=== PATIENT | male | born 1990 | race Caucasian/White ===

== ENCOUNTER 2019-01-03 12:53 | Inpatient (IN) | payer OTHER ==
[2019-01-03] MEDS ORDERED: Sodium Chloride 0.9% 10 ML SDV IV PRN (13:23)
[2019-01-03] MEDS ORDERED: Sodium Chloride 0.9% 2.5 ML Syringe FLUSH PRN (13:23)
[2019-01-03] MEDS ORDERED: Sodium Chloride 0.9% 10 ML Syringe FLUSH PRN (13:23)
[2019-01-03] MEDS ORDERED: HYDROmorphone 1 MG/ML Syringe IVPUSH PRN (13:24)
[2019-01-03] MEDS ORDERED: Piperacillin/Tazobactam 3.375 GM in Sodium Chloride 0.9% 50 ML IV ONE (13:24)
--- NOTE | 2019-01-03 13:30 | PCM.HP.2 ---
H&P History of Present Illness - General Date of Service: 01/03/19 Admit Problem/Dx: Admission Diagnosis/Problem Admission Diagnosis/Problem Appendicitis Source of Information: Patient History Limitations: Reports: No Limitations - History of Present Illness Initial Comments - Free Text/Narative: Patient is a 28 year old male with a 2 day history of abdominal pain. He complains of pain with movement. He has had chills, nausea and vomiting associated with this. He was seen at an OSH. His WBC was 19K. CT abdomen/pelvis shows a dilated and inflamed appendix consistent with appendicitis. He was transfered here for surgical management. - Related Data Allergies/Adverse Reactions: Allergies Allergy/AdvReac Type Severity Reaction Status Date / Time No Known Allergies Allergy Verified 10/29/15 13:09 Home Medications: Home Meds Dextroamphetamine/Amphetamine [Adderall 20 mg Tablet] 20 mg PO BID 10/29/15 [ History] Past Medical History Gastrointestinal History: Reports: GERD Musculoskeletal History: Reports: Fracture (Pelvic fracture) Psychiatric History: Reports: ADHD Hematologic History: Reports: None - Past Surgical History GI Surgical History: Reports: Hernia, Inguinal Musculoskeletal Surgical History: Reports: ORIF (pelvis), Other (See Below) ( tendon repair) Social & Family History - Family History Family Medical History: Noncontributory H&P Review of Systems - Review of Systems: Review Of Systems: ROS reveals no pertinent complaints other than HPI. Exam - Exam Exam: See Below - Exam General: Alert, Oriented, Moderate Distress HEENT: Conjunctiva Clear, Mucosa Moist & [place], Posterior Pharynx Clear Neck: Supple, Trachea Midline Lungs: Clear to Auscultation, Normal Respiratory Effort Cardiovascular: Regular Rate, Regular Rhythm GI/Abdominal Exam: Soft, No Distention, Guarding (RLQ and lower midline ), Rebound (RLQ), Tender (RLQ and lower midline ) - Problem List (1) Appendicitis SNOMED Code(s): 05123654 ICD Code: K37 - UNSPECIFIED APPENDICITIS Status: Acute Current Visit: Yes Problem List Initiated/Reviewed/Updated: Yes Orders Last 24hrs: Active Orders 24 hr Category Date Time Status Patient Status [ADT] Routine ADT 01/03/19 13:23 Ordered Antiembolic Devices [RC] PER UNIT ROUTINE Care 01/03/19 13:24 Ordered Verify Patient Consent Obtain [RC] ASDIRECTED Care 01/03/19 13:23 Ordered NPO Now [Nothing per Oral Now Diet] [DIET] Diet 01/03/19 Dinner Ordered HYDROmorphone [Dilaudid] Med 01/03/19 13:24 Ordered 0.5 mg IVPUSH Q1H PRN Lactated Ringers @ 125 MLS/HR(1000ml) Med 01/03/19 13:30 Ordered Lactated Ringers [Ringers, Lactated] 1,000 ml IV ASDIRECTED Piperacillin/Tazobactam [Piperacil-Tazobact] 3.375 gm Med 01/03/19 13:24 Ordered Sodium Chloride 0.9% [Normal Saline] 50 ml IV ONETIME Sodium Chloride 0.9% [Normal Saline] Med 01/03/19 13:23 Ordered 10 ml IV ASDIRECTED PRN Sodium Chloride 0.9% [Saline Flush] Med 01/03/19 13:23 Ordered 10 ml FLUSH ASDIRECTED PRN Sodium Chloride 0.9% [Saline Flush] Med 01/03/19 13:23 Ordered 2.5 ml FLUSH ASDIRECTED PRN Peripheral IV Insertion Adult [OM.PC] Routine Oth 01/03/19 13:23 Ordered Sequential Compression Device [OM.PC] Routine Oth 01/03/19 13:23 Ordered Resuscitation Status Routine Resus Stat 01/03/19 13:23 Ordered Medication Orders Hydromorphone HCl (Dilaudid) 0.5 mg IVPUSH Q1H PRN PRN Reason: Pain Lactated Ringer's (Ringers, Lactated) 1,000 mls @ 125 mls/hr IV ASDIRECTED ARMOND Piperacillin Sod/Tazobactam (Sod 3.375 gm/ Sodium Chloride) 50 mls @ 100 mls/ hr IV ONETIME ONE Stop: 01/03/19 13:53 Sodium Chloride (Saline Flush) 10 ml FLUSH ASDIRECTED PRN PRN Reason: Keep Vein Open Sodium Chloride (Saline Flush) 2.5 ml FLUSH ASDIRECTED PRN PRN Reason: Keep Vein Open Sodium Chloride (Normal Saline) 10 ml IV ASDIRECTED PRN PRN Reason: IV Use Assessment/Plan Comment:: Patient and I discussed the pathophysiology of appendicitis. The treatment is removal of the appendix. I will attempt this laparoscopically but should I be unable to remove it safely I will convert to open. We discussed the expected perioperative, and the risks including bleeding, infection or damage to surrounding structures. He verbalized understanding and wishes to proceed. - Mortality Measure Prognosis:: Good
--- NOTE | 2019-01-03 13:30 | PCM.PREANE ---
Preanesthetic Assessment - Anesthesia/Transfusion/Family Hx Anesthesia History: Prior Anesthesia Without Reaction Family History of Anesthesia Reaction: No Intubation History: Unknown - Review of Systems General: No Symptoms Pulmonary: No Symptoms Cardiovascular: No Symptoms Gastrointestinal: Abdominal Pain Neurological: No Symptoms Other: Reports: None - Physical Assessment ASA Class: 2E Mental Status: Alert & Oriented x3 Airway Class: Mallampati = 2 Dentition: Reports: Normal Dentition, Ider(s) (x2 upper front) Thyro-Mental Finger Breadths: 3 Mouth Opening Finger Breadths: 3 ROM/Head Extension: Full Lungs: Clear to Auscultation, Normal Respiratory Effort Cardiovascular: Regular Rate, Regular Rhythm - Allergies Allergies/Adverse Reactions: Allergies Allergy/AdvReac Type Severity Reaction Status Date / Time No Known Allergies Allergy Verified 10/29/15 13:09 - Blood Blood Available: No - Anesthesia Plan Pre-Op Medication Ordered: None - Acknowledgements Anesthesia Type Planned: General Anesthesia Pt an Appropriate Candidate for the Planned Anesthesia: Yes Alternatives and Risks of Anesthesia Discussed w Pt/Guardian: Yes Pt/Guardian Understands and Agrees with Anesthesia Plan: Yes PreAnesthesia Questionnaire Gastrointestinal History: Reports: GERD, Other (See Below) (acute appendicitis) Psychiatric History: Reports: ADHD - Past Surgical History GI Surgical History: Reports: Hernia, Inguinal Musculoskeletal Surgical History: Reports: Other (See Below) (pelvis/hip pinning ) Other Musculoskeletal Surgeries/Procedures:: right hand tendon repair - SUBSTANCE USE Smoking Status *Q: Current Some Day Smoker - HOME MEDS Home Medications: Home Meds Dextroamphetamine/Amphetamine [Adderall 20 mg Tablet] 20 mg PO BID 10/29/15 [ History] - CURRENT (IN HOUSE) MEDS Current Meds: Current Medications Hydromorphone HCl (Dilaudid) 0.5 mg IVPUSH Q1H PRN PRN Reason: Pain Lactated Ringer's (Ringers, Lactated) 1,000 mls @ 125 mls/hr IV ASDIRECTED ARMOND Piperacillin Sod/Tazobactam (Sod 3.375 gm/ Sodium Chloride) 50 mls @ 100 mls/ hr IV ONETIME ONE Stop: 01/03/19 13:53 Sodium Chloride (Saline Flush) 10 ml FLUSH ASDIRECTED PRN PRN Reason: Keep Vein Open Sodium Chloride (Saline Flush) 2.5 ml FLUSH ASDIRECTED PRN PRN Reason: Keep Vein Open Sodium Chloride (Normal Saline) 10 ml IV ASDIRECTED PRN PRN Reason: IV Use
[2019-01-03] MEDS: Lactated Ringers 1,000 ML IV SCH (13:40)
[2019-01-03] MEDS: HYDROmorphone 2 MG/ML Syringe IVPUSH PRN ×3 (13:45→18:50)
[2019-01-03] MEDS: HYDROmorphone 2 MG/ML Syringe ONE ×2 (13:46→19:09)
[2019-01-03] MEDS: fentaNYL 100 MCG/2 ML SDV IVPUSH PRN ×2 (14:15→14:35)
[2019-01-03] MEDS ORDERED: Propofol 200 MG/20 ML SDV ONE (14:35)
[2019-01-03] MEDS ORDERED: fentaNYL 250 MCG/5 ML SDV ONE (14:36)
[2019-01-03] MEDS ORDERED: Midazolam 1 MG/ML 2 ML SDV ONE (14:36)
[2019-01-03] MEDS ORDERED: Glycopyrrolate 0.2 MG/ML SDV ONE (14:37)
[2019-01-03] MEDS ORDERED: Rocuronium 100 MG/10 ML Syringe ONE (14:37)
[2019-01-03] MEDS ORDERED: Ketorolac 30 MG/ML SDV ONE (14:37)
[2019-01-03] MEDS ORDERED: Neostigmine Methylsulfate 1 MG/ML 5 ML Syringe ONE (14:37)
[2019-01-03] MEDS ORDERED: Ondansetron 4 MG/2 ML SDV ONE (14:37)
[2019-01-03] MEDS ORDERED: Lidocaine 2% 5 ML SDV ONE (14:37)
[2019-01-03] MEDS ORDERED: Bupivacaine 0.5% 30 ML SDV ONE (15:08)
[2019-01-03] MEDS ORDERED: Esmolol 100 MG/10 ML SDV ONE (15:11)
[2019-01-03] MEDS ORDERED: Phenylephrine/Normal Saline 100 MCG/ML 10 ML Syringe ONE (15:12)
[2019-01-03] MEDS ORDERED: ceFAZolin 1 GM Vial ONE ×2 (15:46→16:09)
[2019-01-03] MEDS ORDERED: 50% Dextrose in Water 50 ML Syringe IVPUSH PRN (16:40)
[2019-01-03] MEDS ORDERED: EPINEPHrine 1:10,000 1 MG/10 ML Syringe IVPUSH PRN (16:40)
[2019-01-03] MEDS ORDERED: Atropine 0.1 MG/ML 10 ML Syringe IVPUSH PRN ×2 (16:40)
[2019-01-03] MEDS ORDERED: fentaNYL 100 MCG/2 ML SDV IVPUSH PRN (16:40)
[2019-01-03] MEDS ORDERED: Albuterol 0.083% 2.5 MG/3 ML Neb Soln NEB PRN (16:40)
[2019-01-03] MEDS ORDERED: Naloxone 0.4 MG/ML Syringe IVPUSH PRN (16:40)
--- NOTE | 2019-01-03 16:59 | PCM.OPNOTE ---
- General Post-Op/Procedure Note Date of Surgery/Procedure: 01/03/19 Operative Procedure(s): Open appendectomy Findings: Necrotic appendicitis with abscess formation and purulent peritonitis. Pre Op Diagnosis: appendicitis Post-Op Diagnosis: necrotic appendicitis with abscess formation and purulent peritonitis Anesthesia Technique: General ET Tube Fluid Replacement, Intraop: 1,700 Output, Urine Amount: 150 EBL in mLs: 10 Surgical Drain/Tube Type: Willie Zuñiga Round Drain Complications: None Condition: Good
[2019-01-03] MEDS ORDERED: Promethazine 25 MG/ML SDV IM PRN (17:16)
[2019-01-03] MEDS ORDERED: Ketorolac 15 MG/ML SDV IVPUSH SCH (17:30)
--- NOTE | 2019-01-03 18:01 | PCM.POSTAN ---
POST ANESTHESIA ASSESSMENT - MENTAL STATUS Mental Status: Alert, Oriented - VITAL SIGNS Vital Signs: Last Vital Signs Temp 36.9 C 01/03/19 17:07 Pulse 88 01/03/19 17:47 Resp 16 01/03/19 17:47 BP 118/67 01/03/19 17:47 Pulse Ox 100 01/03/19 17:47 - RESPIRATORY Respiratory Status: Respiratory Rate WNL, Airway Patent, O2 Saturation Stable, Supplemental Oxygen Free Text/Narrative:: nasal cannula - CARDIOVASCULAR CV Status: Pulse Rate WNL, Blood Pressure Stable - GASTROINTESTINAL GI Status: No Symptoms - POST OP HYDRATION Hydration Status: Adequate & Stable
[2019-01-03 18:08] LABS: CHLORIDE,CL 102 mmol/L (98-107); SODIUM,NA 135 mmol/L (136-148)
--- NOTE | 2019-01-03 18:35 | CR ---
INDICATION: NG tube placement TECHNIQUE: Abdomen one view, 6:08 p.m. COMPARISON: None FINDINGS: Bowel: Bowel pattern is normal. NG tube coiled in the fundus of the stomach. Soft tissues: No sign of free air. No sign of soft tissue mass. No suspicious calcifications. Bones: Unremarkable for age. IMPRESSION: NG tube coiled in the fundus of the stomach. Dictated by Jose A Long MD @ 01/03/2019 6:33:07 PM Dictated by: Jose A Long MD @ 01/03/2019 18:33:43 (Electronically Signed)
[2019-01-03] MEDS: Ketorolac 15 MG/ML SDV IVPUSH SCH (19:48)
[2019-01-03] MEDS: Piperacillin/Tazobactam 3.375 GM in Sodium Chloride 0.9% 50 ML IV SCH (19:49)
--- NOTE | 2019-01-03 20:42 | OR ---
SURGEON: SHANA VELARDE MD DATE OF PROCEDURE: 01/03/2019 PREOPERATIVE DIAGNOSIS: Acute appendicitis. POSTOPERATIVE DIAGNOSIS: Perforated necrotic appendicitis with intraabdominal abscess and generalized peritonitis. PROCEDURE PERFORMED: Laparoscopic converted to open appendectomy. PRIMARY SURGEON: Dr. Shana Velarde. ROUGH CARPENTER: assistant professor of chemistry: Dr. Rico Croft, assistant to the vice president. FLUIDS: 1900 mL crystalloid. ESTIMATED BLOOD LOSS: 10 mL. URINE OUTPUT: 150 mL. FINDINGS: Retrocecal appendix, which was necrotic and encased in an abscess cavity. Purulent peritonitis along the right pericolic gutter extending down into the pelvis. COMPLICATIONS: None. INDICATIONS: The patient is a 28-year-old male who presents with 2 days of abdominal pain. Workup at an outside hospital showed a white blood cell count of 19,000, and a CT scan of the abdomen and pelvis shows a thickened and inflamed appendix. He was transferred here for surgical care. I explained the pathophysiology of appendicitis to the patient, the treatment of which is appendectomy. I explained both the laparoscopic and open procedures. I will attempt this laparoscopically, but the patient understood that if I was unable to complete it safely, I would convert to open. I explained the expected postoperative course as well as the risks of the procedure including bleeding, infection, or damage to surrounding structures. He verbalized understanding and wishes to proceed. PROCEDURE IN DETAIL: The patient was brought into the OR and placed on the OR table in supine position. A time-out was completed verifying the patient's name, age, date of , allergies, and procedure to be performed. General endotracheal anesthesia was induced. The left arm was tucked to the patient's side and a Bland catheter placed. The abdomen was prepped and draped in usual standard fashion. I anesthetized an area 2 fingerbreadths below the left subcostal margin in the midclavicular line with 0.5% Marcaine plain. A 1 cm incision was made using an 11 blade in this area. A 5 mm optical trocar was then used to gain entry into the abdomen in the left upper quadrant. All layers of the abdominal wall were visualized upon entry. The abdomen was insufflated and a 5- mm 30-degree scope was inserted into the belly. I inspected the area underneath my initial trocar placement and no damage to surrounding structures was noted. A 5-mm trocar was placed just left and lateral of the umbilicus under direct visualization in a similar fashion. I turned my attention to the lower abdomen and immediately noted a large amount of purulent-appearing material, which extended from the pelvis up the right pericolic gutter to the liver edge. Using an atraumatic grasper, I identified the cecum and attempted to rotate it medially. There was a significant amount of inflammation in the right lower quadrant making it difficult to explore the area and the decision was made to convert to open for better exposure and washout of the belly. I anesthetized the right lower quadrant of the abdominal wall with 0.5% Marcaine plain. A 10 blade was used to make an oblique incision over McBurney's point. Cautery was used to dissect down to the level of the external oblique. The external oblique fascia was opened along its fibers. The muscle beneath this was then spread along its fibers. Retractors were placed and I elevated the peritoneum. The peritoneum was opened with Metzenbaum scissors and entry into the abdomen was verified by the release of the pneumoperitoneum. I extended my incision both medially and laterally. Retractors were then placed into the abdomen. I identified my cecum and followed the tenia down to the base of the appendix. The appendix appeared to be encased in a thickened rind of inflammatory tissue which was an abscess cavity. Using finger dissection, I took down this inflammatory rind and was able to identify the tip of my appendix. I grasped the appendix with a [place] and used a hemostat to dissect the appendix free from the surrounding attachments. The appendiceal mesentery appeared friable and partially necrotic. I was able to take down the appendiceal mesentery from distal to proximal using a combination of blunt dissection as well as using a Harmonic Scalpel device. When I was at the very proximal edge of the appendiceal body, I encountered the appendiceal artery. It appeared to be clotted. I dissected around the artery and ligated it with 3-0 silk suture. It was then taken down from its attachment on the appendix using a Harmonic Scalpel device. Once the appendix was completely free of the surrounding structures, I inspected it. The patient appeared to have a large perforation in the mid body of the appendix. The base of the appendix, however, appeared healthy with only mild inflammation. The decision was made to staple and transect across the base of the appendix where it inserted on the cecum. An endoscopic stapling device was brought into the field. I stapled and transected across the base of the appendix using a 45 mm blue load of chiquita. The appendix was then passed off the field and sent to pathology. I removed pieces of the abscess cavity and perforated appendix from the operative field. I then copiously irrigated the abdomen with 2 L of normal saline Ancef solution. I suctioned around thd abdomen with a pool tip suction device to try and remove as much fluid and purulent material as possible. A 19-Syriac round Abdirashid drain was directed along the right paracolic gutter and into the pelvis and brought out just medial to my surgical incision through a separate incision. It was secured to the skin using a 3-0 silk suture. I then closed the peritoneum with running 0 Vicryl sutures. The external oblique fascia was closed with a running 0 Vicryl suture as well. I then irrigated the wound and loosely closed it with chiquita. 1-inch iodoform packing was placed in between these chiquita and 4 x 4 dry dressings were placed on top and secured with Medipore tape. The 5-mm trocars that I had previously placed in the abdomen were removed, and the 5-mm trocar sites were closed with chqiuita as well. The patient tolerated the procedure well and was taken to PACU in stable condition. All counts were complete and correct at the end of the case. AILIN SWARTZ /[id number] TOBIAS
[2019-01-03] MEDS: Morphine 4 MG/ML Syringe IVPUSH PRN ×2 (21:34→23:57)
[2019-01-04] MEDS: Ketorolac 15 MG/ML SDV IVPUSH SCH ×5 (01:09→20:15)
[2019-01-04] MEDS: Lactated Ringers 1,000 ML IV SCH ×3 (01:52→18:20)
[2019-01-04] MEDS: Piperacillin/Tazobactam 3.375 GM in Sodium Chloride 0.9% 50 ML IV SCH ×4 (01:54→20:20)
[2019-01-04] MEDS: Morphine 4 MG/ML Syringe IVPUSH PRN ×7 (01:58→23:22)
[2019-01-04 06:45] LABS: CHLORIDE,CL 104 mmol/L (98-107); SODIUM,NA 139 mmol/L (136-148)
[2019-01-04] MEDS: Acetaminophen/HYDROcodone 325-5 MG Tab PO PRN ×4 (08:19→21:20)
[2019-01-04] MEDS ORDERED: Pantoprazole 40 MG in Sodium Chloride 0.9% 10 ML IV SCH (09:00)
--- NOTE | 2019-01-04 09:25 | PCM.SURGPN ---
- General Info Date of Service: 01/04/19 Date of Surgery/Procedure: 01/03/19 POD#: 1 Functional Status: Reports: Pain Controlled, Other (VSS overnight. Minimal output from NG. Urine output good. Pain controlled with current medications. Has not been out of bed yet. ). Denies: New Symptoms - Review of Systems General: Reports: No Symptoms HEENT: Reports: No Symptoms Pulmonary: Reports: No Symptoms Cardiovascular: Reports: No Symptoms Gastrointestinal: Reports: Other (Feels bloated). Denies: Diarrhea, Flatus, Nausea, Vomiting Genitourinary: Reports: No Symptoms Musculoskeletal: Reports: No Symptoms Skin: Reports: No Symptoms - Patient Data Vitals - Most Recent: Last Vital Signs Temp 36.8 C 01/04/19 04:00 Pulse 92 01/04/19 07:00 Resp 12 01/04/19 07:00 BP 101/51 L 01/04/19 07:00 Pulse Ox 92 L 01/04/19 07:00 Weight - Most Recent: 68.9 kg I&O - Last 24 Hours: Intake & Output 01/03/19 01/04/19 01/04/19 22:59 06:59 14:59 Intake Total 4850 90 240 Output Total 795 520 Balance 4055 -430 240 Lab Results Last 24 Hrs: Laboratory Results - last 24 hr 01/03/19 01/03/19 01/03/19 Range/Units 17:48 17:48 17:48 WBC 12.91 H (4.0-11.0) K/uL RBC 4.89 (4.50-5.90) M/uL Hgb 15.0 (13.0-17.0) g/dL Hct 44.2 (38.0-50.0) % MCV 90.4 (80.0-98.0) fL MCH 30.7 (27.0-32.0) pg MCHC 33.9 (31.0-37.0) g/dL RDW Std Deviation 43.1 (28.0-62.0) fl RDW Coeff of Laura 13 (11.0-15.0) % Plt Count 199 (150-400) K/uL MPV 10.40 (7.40-12.00) fL Neut % (Auto) 86.8 H (48.0-80.0) % Lymph % (Auto) 6.8 L (16.0-40.0) % [place] % (Auto) 6.0 (0.0-15.0) % Eos % (Auto) 0.2 (0.0-7.0) % Baso % (Auto) 0.2 (0.0-1.5) % Neut # (Auto) 11.2 H (1.4-5.7) K/uL Lymph # (Auto) 0.9 (0.6-2.4) K/uL [place] # (Auto) 0.8 (0.0-0.8) K/uL Eos # (Auto) 0.0 (0.0-0.7) K/uL Baso # (Auto) 0.0 (0.0-0.1) K/uL Nucleated RBC % 0.0 /100WBC Nucleated RBCs # 0 K/uL Lactate 2.4 H (0.20-2.00) mmol/L Sodium 135 L (136-148) mmol/L Potassium 4.7 (3.5-5.1) mmol/L Chloride 102 (98-107) mmol/L Carbon Dioxide 22.3 (21.0-32.0) mmol/L BUN 15 (7.0-18.0) mg/dL Creatinine 1.1 (0.8-1.3) mg/dL Est Cr Clr Drug Dosing 86.97 mL/min Estimated GFR (MDRD) > 60.0 ml/min Glucose 107 H (74-106) mg/dL Calcium 9.0 (8.5-10.1) mg/dL 01/04/19 01/04/19 01/04/19 Range/Units 00:25 06:15 06:15 WBC 10.02 (4.0-11.0) K/uL RBC 4.15 L (4.50-5.90) M/uL Hgb 12.5 L (13.0-17.0) g/dL Hct 37.3 L (38.0-50.0) % MCV 89.9 (80.0-98.0) fL MCH 30.1 (27.0-32.0) pg MCHC 33.5 (31.0-37.0) g/dL RDW Std Deviation 44.0 (28.0-62.0) fl RDW Coeff of Laura 13 (11.0-15.0) % Plt Count 201 (150-400) K/uL MPV 10.30 (7.40-12.00) fL Neut % (Auto) 82.6 H (48.0-80.0) % Lymph % (Auto) 8.9 L (16.0-40.0) % [place] % (Auto) 6.3 (0.0-15.0) % Eos % (Auto) 1.8 (0.0-7.0) % Baso % (Auto) 0.4 (0.0-1.5) % Neut # (Auto) 8.3 H (1.4-5.7) K/uL Lymph # (Auto) 0.9 (0.6-2.4) K/uL [place] # (Auto) 0.6 (0.0-0.8) K/uL Eos # (Auto) 0.2 (0.0-0.7) K/uL Baso # (Auto) 0.0 (0.0-0.1) K/uL Nucleated RBC % 0.0 /100WBC Nucleated RBCs # 0 K/uL Lactate 1.8 (0.20-2.00) mmol/L Sodium 139 (136-148) mmol/L Potassium 3.8 (3.5-5.1) mmol/L Chloride 104 (98-107) mmol/L Carbon Dioxide 27.9 (21.0-32.0) mmol/L BUN 15 (7.0-18.0) mg/dL Creatinine 1.0 (0.8-1.3) mg/dL Est Cr Clr Drug Dosing 95.67 mL/min Estimated GFR (MDRD) > 60.0 ml/min Glucose 92 (74-106) mg/dL Calcium 8.5 (8.5-10.1) mg/dL Med Orders - Current: Current Medications Hydrocodone Bitart/Acetaminophen ([place] 325-5 Mg) 2 tab PO Q4H PRN PRN Reason: Pain Last Admin: 01/04/19 08:19 Dose: 2 tab Enoxaparin Sodium (Lovenox) 40 mg SUBCUT Q24H ARMOND Lactated Ringer's (Ringers, Lactated) 1,000 mls @ 150 mls/hr IV ASDIRECTED ARMOND Last Admin: 01/04/19 01:52 Dose: 125 mls/hr Pantoprazole Sodium 40 mg/ (Sodium Chloride) 10 mls @ 300 mls/hr IV DAILY [facility] Last Admin: 01/04/19 08:18 Dose: 300 mls/hr Piperacillin Sod/Tazobactam (Sod 3.375 gm/ Sodium Chloride) 50 mls @ 100 mls/ hr IV Q6H [facility] Last Admin: 01/04/19 08:17 Dose: 100 mls/hr Ketorolac Tromethamine (Toradol) 15 mg IVPUSH Q6H [facility] Stop: 01/04/19 13:31 Last Admin: 01/04/19 06:36 Dose: 15 mg Ketorolac Tromethamine (Toradol) 15 mg IVPUSH Q6H [facility] Stop: 01/09/19 08:05 Morphine Sulfate (Morphine) 3 mg IVPUSH Q1H PRN PRN Reason: Pain (severe 7-10) Last Admin: 01/04/19 05:20 Dose: 3 mg Ondansetron HCl (Zofran) 4 mg IVPUSH Q6H PRN PRN Reason: Nausea/Vomiting Promethazine HCl (Phenergan) 25 mg IM Q6H PRN PRN Reason: Nausea Sodium Chloride (Saline Flush) 10 ml FLUSH ASDIRECTED PRN PRN Reason: Keep Vein Open Sodium Chloride (Saline Flush) 2.5 ml FLUSH ASDIRECTED PRN PRN Reason: Keep Vein Open Sodium Chloride (Normal Saline) 10 ml IV ASDIRECTED PRN PRN Reason: IV Use Discontinued Medications Albuterol (Proventil Neb Soln) 2.5 mg NEB ONETIME PRN PRN Reason: Wheezing Atropine Sulfate (Atropine 0.1 Mg/Ml) 0.5 mg IVPUSH ASDIRECTED PRN PRN Reason: Hypo-perfusion Atropine Sulfate (Atropine 0.1 Mg/Ml) 1 mg IVPUSH ASDIRECTED PRN PRN Reason: Hypo-Perfusion Bupivacaine HCl (Marcaine 0.5%) Confirm Administered Dose 30 ml .ROUTE .STK-MED ONE Stop: 01/03/19 15:09 Cefazolin Sodium (Ancef) Confirm Administered Dose 1 gm .ROUTE .STK-MED ONE Stop: 01/03/19 15:47 Cefazolin Sodium (Ancef) Confirm Administered Dose 1 gm .ROUTE .STK-MED ONE Stop: 01/03/19 16:10 Dextrose/Water (Dextrose 50% In Water) 50 ml IVPUSH ASDIRECTED PRN PRN Reason: Hypoglycemia Epinephrine HCl (Epinephrine 1:10,000) 1 mg IVPUSH ASDIRECTED PRN PRN Reason: ACLS Guidelines Esmolol HCl (Esmolol) Confirm Administered Dose 100 mg .ROUTE .STK-MED ONE Stop: 01/03/19 15:12 Fentanyl (Sublimaze) 50 mcg IVPUSH Q5M PRN PRN Reason: Pain Last Admin: 01/03/19 14:35 Dose: 50 mcg Fentanyl (Sublimaze) Confirm Administered Dose 250 mcg .ROUTE .STK-MED ONE Stop: 01/03/19 14:37 Fentanyl (Sublimaze) 50 mcg IVPUSH Q5M PRN PRN Reason: Pain Glycopyrrolate (Robinul) Confirm Administered Dose 0.8 mg .ROUTE .STK-MED ONE Stop: 01/03/19 14:38 Hydromorphone HCl (Dilaudid) 0.5 mg IVPUSH Q1H PRN PRN Reason: Pain Hydromorphone HCl (Dilaudid) Confirm Administered Dose 2 mg .ROUTE .STK-MED ONE Stop: 01/03/19 13:41 Last Admin: 01/03/19 19:09 Dose: Not Given Hydromorphone HCl (Dilaudid) 0.5 mg IVPUSH Q1H PRN PRN Reason: Pain Last Admin: 01/03/19 18:50 Dose: 0.5 mg Piperacillin Sod/Tazobactam (Sod 3.375 gm/ Sodium Chloride) 50 mls @ 100 mls/ hr IV ONETIME ONE Stop: 01/03/19 13:53 Last Admin: 01/03/19 13:50 Dose: 100 mls/hr Acetaminophen (Ofirmev) Confirm Administered Dose 100 mls @ as directed IV .STK- MED ONE Stop: 01/03/19 17:15 Ketorolac Tromethamine (Toradol) Confirm Administered Dose 30 mg .ROUTE .STK- MED ONE Stop: 01/03/19 14:38 Ketorolac Tromethamine (Toradol) 15 mg IVPUSH Q6H ARMOND Stop: 01/04/19 11:31 Last Admin: 01/03/19 20:11 Dose: Not Given Lidocaine (Xylocaine-Mpf 2%) Confirm Administered Dose 5 ml .ROUTE .STK-MED ONE Stop: 01/03/19 14:38 Midazolam HCl (Versed 1 Mg/Ml) Confirm Administered Dose 2 mg .ROUTE .STK-MED ONE Stop: 01/03/19 14:37 Naloxone HCl (Narcan) 0.1 mg IVPUSH ASDIRECTED PRN PRN Reason: Respiratory Depression Neostigmine Methylsulfate (Neostigmine) Confirm Administered Dose 5 mg .ROUTE .STK-MED ONE Stop: 01/03/19 14:38 Ondansetron HCl (Zofran) Confirm Administered Dose 4 mg .ROUTE .STK-MED ONE Stop: 01/03/19 14:38 Phenylephrine HCl (Phenylephrine In Ns 100 Mcg/Ml) Confirm Administered Dose 1 mg .ROUTE .STK-MED ONE Stop: 01/03/19 15:13 Propofol (Diprivan 20 Ml) Confirm Administered Dose 200 mg .ROUTE .STK-MED ONE Stop: 01/03/19 14:36 Rocuronium [place] (Zemuron) Confirm Administered Dose 100 mg .ROUTE .STK-MED ONE Stop: 01/03/19 14:38 - Exam Wound/Incisions: Dressing Dry and Intact, Other (Drain with clear serous output ) General: Alert, Oriented, Cooperative HEENT: Pupils Equal, Pupils Reactive Lungs: Clear to Auscultation, Normal Respiratory Effort Cardiovascular: Regular Rate, Regular Rhythm GI/Abdominal Exam: Soft, Non-Tender, No Mass, Distended Extremities: Normal Inspection Skin: Warm, Dry, Intact - Problem List & Annotations (1) Appendicitis SNOMED Code(s): 02867599 Code(s): K37 - UNSPECIFIED APPENDICITIS Status: Acute Current Visit: Yes Qualifiers: Appendicitis type: acute appendicitis Acute appendicitis type: with generalized peritonitis Appendicitis gangrene presence: with gangrene Appendicitis perforation presence: with perforation Appendicitis abscess presence: with abscess Qualified Code(s): K35.21 - Acute appendicitis with generalized peritonitis, with abscess; K35.891 - Other acute appendicitis without perforation, with gangrene - Problem List Review Problem List Initiated/Reviewed/Updated: Yes - My Orders Last 24 Hours: Active Orders 24 hr Category Date Time Status Patient Status [ADT] Routine ADT 01/03/19 17:10 Active Transfer Patient (Change bed) [ADT] Routine ADT 01/04/19 07:44 Ordered Ambulate [RC] ASDIRECTED Care 01/04/19 09:15 Ordered Communication Order [RC] ROUTINE Care 01/03/19 18:55 Active Intake and Output [RC] Q4HR Care 01/03/19 17:11 Active NG [Gastrointestinal Tube Mgmt] [RC] ASDIRECTED Care 01/03/19 18:56 Active Notify Provider Vital Signs [RC] ASDIRECTED Care 01/03/19 16:40 Active Oxygen Therapy [RC] PRN Care 01/03/19 16:40 Active RT Aerosol Therapy [RC] ASDIRECTED Care 01/03/19 16:40 Active RT Incentive Spirometry [RC] Q1HWA Care 01/03/19 17:10 Active Remove Adame Catheter [Urinary Catheter Removal] [RC] Care 01/04/19 07:43 Active Per Unit Routine Up With Assistance [RC] ASDIRECTED Care 01/03/19 17:10 Active Urinary Catheter Assessment [RC] ASDIRECTED Care 01/03/19 17:16 Active Vital Signs [RC] Q1H Care 01/03/19 17:10 Active Vital Signs [RC] Q5M Care 01/03/19 16:40 Active Clear Liquid Diet [DIET] Diet 01/04/19 Lunch Active Nothing Per Oral Diet [DIET] Diet 01/03/19 Dinner Active BASIC METABOLIC PANEL,BMP [CHEM] AM Lab 01/05/19 05:11 Ordered BASIC METABOLIC PANEL,BMP [CHEM] AM Lab 01/06/19 05:11 Ordered BASIC METABOLIC PANEL,BMP [CHEM] AM Lab 01/07/19 05:11 Ordered BASIC METABOLIC PANEL,BMP [CHEM] AM Lab 01/08/19 05:11 Ordered CBC WITH AUTO DIFF [HEME] AM Lab 01/05/19 05:11 Ordered CBC WITH AUTO DIFF [HEME] AM Lab 01/06/19 05:11 Ordered CBC WITH AUTO DIFF [HEME] AM Lab 01/07/19 05:11 Ordered CBC WITH AUTO DIFF [HEME] AM Lab 01/08/19 05:11 Ordered Acetaminophen/HYDROcodone [[place] 325-5 MG] Med 01/04/19 07:49 Active 2 tab PO Q4H PRN Enoxaparin [Lovenox] Med 01/04/19 09:15 Ordered 40 mg SUBCUT Q24H Ketorolac [Toradol] Med 01/03/19 19:30 Active 15 mg IVPUSH Q6H Ketorolac [Toradol] Med 01/04/19 08:15 Active 15 mg IVPUSH Q6H Lactated Ringers [Ringers, Lactated] 1,000 ml Med 01/03/19 13:30 Active IV ASDIRECTED Morphine Med 01/03/19 17:16 Active 3 mg IVPUSH Q1H PRN Ondansetron [Zofran] Med 01/03/19 17:16 Active 4 mg IVPUSH Q6H PRN Pantoprazole [ProTONIX IV] 40 mg Med 01/04/19 09:00 Active Sodium Chloride 0.9% [Normal Saline] 10 ml IV DAILY Piperacillin/Tazobactam [Piperacil-Tazobact] 3.375 gm Med 01/03/19 20:00 Active Sodium Chloride 0.9% [Normal Saline] 50 ml IV Q6H Promethazine [Phenergan] Med 01/03/19 17:16 Active 25 mg IM Q6H PRN Sodium Chloride 0.9% [Normal Saline] Med 01/03/19 13:23 Active 10 ml IV ASDIRECTED PRN Sodium Chloride 0.9% [Saline Flush] Med 01/03/19 13:23 Active 10 ml FLUSH ASDIRECTED PRN Sodium Chloride 0.9% [Saline Flush] Med 01/03/19 13:23 Active 2.5 ml FLUSH ASDIRECTED PRN NG [Nasogastric Orogastric Tube Removal] [OM.PC] Oth 01/04/19 07:43 Ordered Routine Peripheral IV Insertion Adult [OM.PC] Routine Oth 01/03/19 13:23 Ordered Sequential Compression Device [OM.PC] Routine Oth 01/03/19 13:23 Ordered Resuscitation Status Routine Resus Stat 01/03/19 13:23 Ordered Medication Orders Hydrocodone Bitart/Acetaminophen ([place] 325-5 Mg) 2 tab PO Q4H PRN PRN Reason: Pain Last Admin: 01/04/19 08:19 Dose: 2 tab Enoxaparin Sodium (Lovenox) 40 mg SUBCUT Q24H ARMOND Lactated Ringer's (Ringers, Lactated) 1,000 mls @ 150 mls/hr IV ASDIRECTED ARMOND Last Admin: 01/04/19 01:52 Dose: 125 mls/hr Infusion: 01/03/19 21:40 Dose: 125 mls/hr Admin: 01/03/19 13:40 Dose: 125 mls/hr Pantoprazole Sodium 40 mg/ (Sodium Chloride) 10 mls @ 300 mls/hr IV DAILY [facility] Last Admin: 01/04/19 08:18 Dose: 300 mls/hr Piperacillin Sod/Tazobactam (Sod 3.375 gm/ Sodium Chloride) 50 mls @ 100 mls/ hr IV Q6H [facility] Last Admin: 01/04/19 08:17 Dose: 100 mls/hr Infusion: 01/04/19 02:24 Dose: 100 mls/hr Admin: 01/04/19 01:54 Dose: 100 mls/hr Infusion: 01/03/19 20:19 Dose: 100 mls/hr Admin: 01/03/19 19:49 Dose: 100 mls/hr Ketorolac Tromethamine (Toradol) 15 mg IVPUSH Q6H [facility] Stop: 01/04/19 13:31 Last Admin: 01/04/19 06:36 Dose: 15 mg Admin: 01/04/19 01:09 Dose: 15 mg Admin: 01/03/19 19:48 Dose: 15 mg Ketorolac Tromethamine (Toradol) 15 mg IVPUSH Q6H [facility] Stop: 01/09/19 08:05 Morphine Sulfate (Morphine) 3 mg IVPUSH Q1H PRN PRN Reason: Pain (severe 7-10) Last Admin: 01/04/19 05:20 Dose: 3 mg Admin: 01/04/19 03:20 Dose: 3 mg Admin: 01/04/19 01:58 Dose: 3 mg Admin: 01/03/19 23:57 Dose: 3 mg Admin: 01/03/19 21:34 Dose: 3 mg Ondansetron HCl (Zofran) 4 mg IVPUSH Q6H PRN PRN Reason: Nausea/Vomiting Promethazine HCl (Phenergan) 25 mg IM Q6H PRN PRN Reason: Nausea Sodium Chloride (Saline Flush) 10 ml FLUSH ASDIRECTED PRN PRN Reason: Keep Vein Open Sodium Chloride (Saline Flush) 2.5 ml FLUSH ASDIRECTED PRN PRN Reason: Keep Vein Open Sodium Chloride (Normal Saline) 10 ml IV ASDIRECTED PRN PRN Reason: IV Use - Plan Plan (Free Text/Narrative):: -Pain: IV MS 3mg q 1hr prn severe pain, scheduled toradol 15mg IV q 6hr, norco added this morning. 325-5mg 2 tab q 4hr prn pain. -CV/Pulm: D/C cardiac monitoring. Encourage OOB activity and IS use to improve O2 sats. -GI: Remove NG. Clear liquids -Renal: BUN/Cr WNL. Great UOP. Remove adame -ID: Continue IV zosyn for today. Anticipate switching to po meds tomorrow if tolerating clear liquid diet today and WBC stays normal. -Heme: stable -Px: switching to po omeprazole daily with history of GERD. Lovenox 40mg daily. SCDs Transfer to floor.
[2019-01-04] MEDS: Enoxaparin 40 MG/0.4 ML Syringe SUBCUT SCH (10:08)
[2019-01-04] MEDS ORDERED: Bisacodyl 5 MG Tab PO PRN (12:43)
[2019-01-05] MEDS: Ketorolac 15 MG/ML SDV IVPUSH SCH ×4 (02:20→20:22)
[2019-01-05] MEDS: Acetaminophen/HYDROcodone 325-5 MG Tab PO PRN ×3 (02:20→10:48)
[2019-01-05] MEDS: Piperacillin/Tazobactam 3.375 GM in Sodium Chloride 0.9% 50 ML IV SCH ×2 (02:25→07:43)
[2019-01-05] MEDS: Lactated Ringers 1,000 ML IV SCH (03:00)
[2019-01-05 06:32] LABS: CHLORIDE,CL 105 mmol/L (98-107); SODIUM,NA 140 mmol/L (136-148)
[2019-01-05] MEDS: Omeprazole 20 MG Cap.CR PO SCH (06:42)
--- NOTE | 2019-01-05 07:00 | PCM48HPAN ---
Post Anesthesia Note - EVALUATION WITHIN 48HRS OF ANESTHETIC Vital Signs in Normal Range: Yes Patient Participated in Evaluation: Yes Respiratory Function Stable: Yes Airway Patent: Yes Cardiovascular Function Stable: Yes Hydration Status Stable: Yes Pain Control Satisfactory: Yes Nausea and Vomiting Control Satisfactory: Yes Mental Status Recovered: Yes Vital Signs: Last Vital Signs Temp 98.2 F 01/05/19 04:00 Pulse 88 01/05/19 04:00 Resp 16 01/05/19 04:00 BP 100/57 L 01/05/19 04:00 Pulse Ox 92 L 01/05/19 04:00
[2019-01-05] MEDS: Enoxaparin 40 MG/0.4 ML Syringe SUBCUT SCH (09:36)
[2019-01-05] MEDS: metroNIDAZOLE 250 MG Tab PO SCH ×3 (11:56→23:15)
[2019-01-05] MEDS: Ciprofloxacin 500 MG Tab PO SCH ×2 (11:56→20:22)
--- NOTE | 2019-01-05 12:11 | PCM.SURGPN ---
- General Info Date of Service: 01/05/19 Date of Surgery/Procedure: 01/03/19 POD#: 2 Functional Status: Reports: Pain Controlled, Tolerating Diet, Ambulating, Urinating - Review of Systems General: Reports: No Symptoms HEENT: Reports: No Symptoms Pulmonary: Reports: No Symptoms Cardiovascular: Reports: No Symptoms Gastrointestinal: Reports: Flatus. Denies: Abdominal Pain Genitourinary: Reports: No Symptoms Musculoskeletal: Reports: No Symptoms Skin: Reports: No Symptoms Neurological: Reports: No Symptoms - Patient Data Vitals - Most Recent: Last Vital Signs Temp 36.8 C 01/05/19 11:44 Pulse 71 01/05/19 11:44 Resp 16 01/05/19 11:44 BP 116/70 01/05/19 11:44 Pulse Ox 96 01/05/19 11:44 Weight - Most Recent: 68.039 kg I&O - Last 24 Hours: Intake & Output 01/04/19 01/05/19 01/05/19 22:59 06:59 14:59 Intake Total 1530 2272 350 Output Total 1815 650 280 Balance -285 1622 70 Lab Results Last 24 Hrs: Laboratory Results - last 24 hr 01/05/19 01/05/19 Range/Units 05:53 05:53 WBC 10.12 (4.0-11.0) K/uL RBC 3.97 L (4.50-5.90) M/uL Hgb 11.8 L (13.0-17.0) g/dL Hct 36.1 L (38.0-50.0) % MCV 90.9 (80.0-98.0) fL MCH 29.7 (27.0-32.0) pg MCHC 32.7 (31.0-37.0) g/dL RDW Std Deviation 43.9 (28.0-62.0) fl RDW Coeff of Laura 13 (11.0-15.0) % Plt Count 204 (150-400) K/uL MPV 10.80 (7.40-12.00) fL Neut % (Auto) 82.0 H (48.0-80.0) % Lymph % (Auto) 6.2 L (16.0-40.0) % [place] % (Auto) 8.5 (0.0-15.0) % Eos % (Auto) 3.1 (0.0-7.0) % Baso % (Auto) 0.2 (0.0-1.5) % Neut # (Auto) 8.3 H (1.4-5.7) K/uL Lymph # (Auto) 0.6 (0.6-2.4) K/uL [place] # (Auto) 0.9 H (0.0-0.8) K/uL Eos # (Auto) 0.3 (0.0-0.7) K/uL Baso # (Auto) 0.0 (0.0-0.1) K/uL Nucleated RBC % 0.0 /100WBC Nucleated RBCs # 0 K/uL Sodium 140 (136-148) mmol/L Potassium 3.7 (3.5-5.1) mmol/L Chloride 105 (98-107) mmol/L Carbon Dioxide 32.0 (21.0-32.0) mmol/L BUN 8 (7.0-18.0) mg/dL Creatinine 0.9 (0.8-1.3) mg/dL Est Cr Clr Drug Dosing 106.30 mL/min Estimated GFR (MDRD) > 60.0 ml/min Glucose 75 (74-106) mg/dL Calcium 8.5 (8.5-10.1) mg/dL Med Orders - Current: Current Medications Hydrocodone Bitart/Acetaminophen (Cornelius 325-5 Mg) 2 tab PO Q4H PRN PRN Reason: Pain Last Admin: 01/05/19 10:48 Dose: 2 tab Bisacodyl (Dulcolax) 5 mg PO DAILY PRN PRN Reason: Constipation Last Admin: 01/05/19 11:01 Dose: 5 mg Ciprofloxacin (Ciprofloxacin Hcl) 500 mg PO BID [facility] Last Admin: 01/05/19 11:56 Dose: 500 mg Enoxaparin Sodium (Lovenox) 40 mg SUBCUT Q24H [facility] Last Admin: 01/05/19 09:36 Dose: 40 mg Ketorolac Tromethamine (Toradol) 15 mg IVPUSH Q6H [facility] Stop: 01/09/19 08:05 Last Admin: 01/05/19 07:44 Dose: 15 mg Metronidazole (Metronidazole) 250 mg PO Q6H [facility] Last Admin: 01/05/19 11:56 Dose: 250 mg Morphine Sulfate (Morphine) 3 mg IVPUSH Q1H PRN PRN Reason: Pain (severe 7-10) Last Admin: 01/04/19 23:22 Dose: 3 mg Omeprazole (Omeprazole) 20 mg PO ACBREAKFAST [facility] Last Admin: 01/05/19 06:42 Dose: 20 mg Ondansetron HCl (Zofran) 4 mg IVPUSH Q6H PRN PRN Reason: Nausea/Vomiting Promethazine HCl (Phenergan) 25 mg IM Q6H PRN PRN Reason: Nausea Sodium Chloride (Saline Flush) 10 ml FLUSH ASDIRECTED PRN PRN Reason: Keep Vein Open Sodium Chloride (Saline Flush) 2.5 ml FLUSH ASDIRECTED PRN PRN Reason: Keep Vein Open Sodium Chloride (Normal Saline) 10 ml IV ASDIRECTED PRN PRN Reason: IV Use Discontinued Medications Albuterol (Proventil Neb Soln) 2.5 mg NEB ONETIME PRN PRN Reason: Wheezing Atropine Sulfate (Atropine 0.1 Mg/Ml) 0.5 mg IVPUSH ASDIRECTED PRN PRN Reason: Hypo-perfusion Atropine Sulfate (Atropine 0.1 Mg/Ml) 1 mg IVPUSH ASDIRECTED PRN PRN Reason: Hypo-Perfusion Bupivacaine HCl (Marcaine 0.5%) Confirm Administered Dose 30 ml .ROUTE .STK-MED ONE Stop: 01/03/19 15:09 Cefazolin Sodium (Ancef) Confirm Administered Dose 1 gm .ROUTE .STK-MED ONE Stop: 01/03/19 15:47 Cefazolin Sodium (Ancef) Confirm Administered Dose 1 gm .ROUTE .STK-MED ONE Stop: 01/03/19 16:10 Dextrose/Water (Dextrose 50% In Water) 50 ml IVPUSH ASDIRECTED PRN PRN Reason: Hypoglycemia Epinephrine HCl (Epinephrine 1:10,000) 1 mg IVPUSH ASDIRECTED PRN PRN Reason: ACLS Guidelines Esmolol HCl (Esmolol) Confirm Administered Dose 100 mg .ROUTE .STK-MED ONE Stop: 01/03/19 15:12 Fentanyl (Sublimaze) 50 mcg IVPUSH Q5M PRN PRN Reason: Pain Last Admin: 01/03/19 14:35 Dose: 50 mcg Fentanyl (Sublimaze) Confirm Administered Dose 250 mcg .ROUTE .STK-MED ONE Stop: 01/03/19 14:37 Fentanyl (Sublimaze) 50 mcg IVPUSH Q5M PRN PRN Reason: Pain Glycopyrrolate (Robinul) Confirm Administered Dose 0.8 mg .ROUTE .STK-MED ONE Stop: 01/03/19 14:38 Hydromorphone HCl (Dilaudid) 0.5 mg IVPUSH Q1H PRN PRN Reason: Pain Hydromorphone HCl (Dilaudid) Confirm Administered Dose 2 mg .ROUTE .STK-MED ONE Stop: 01/03/19 13:41 Last Admin: 01/03/19 19:09 Dose: Not Given Hydromorphone HCl (Dilaudid) 0.5 mg IVPUSH Q1H PRN PRN Reason: Pain Last Admin: 01/03/19 18:50 Dose: 0.5 mg Lactated Ringer's (Ringers, Lactated) 1,000 mls @ 150 mls/hr IV ASDIRECTED [facility] Last Admin: 01/05/19 03:00 Dose: 125 mls/hr Piperacillin Sod/Tazobactam (Sod 3.375 gm/ Sodium Chloride) 50 mls @ 100 mls/ hr IV ONETIME ONE Stop: 01/03/19 13:53 Last Admin: 01/03/19 13:50 Dose: 100 mls/hr Acetaminophen (Ofirmev) Confirm Administered Dose 100 mls @ as directed IV .STK- MED ONE Stop: 01/03/19 17:15 Pantoprazole Sodium 40 mg/ (Sodium Chloride) 10 mls @ 300 mls/hr IV DAILY [facility] Last Admin: 01/04/19 08:18 Dose: 300 mls/hr Piperacillin Sod/Tazobactam (Sod 3.375 gm/ Sodium Chloride) 50 mls @ 100 mls/ hr IV Q6H [facility] Last Admin: 01/05/19 07:43 Dose: 100 mls/hr Ketorolac Tromethamine (Toradol) Confirm Administered Dose 30 mg .ROUTE .STK- MED ONE Stop: 01/03/19 14:38 Ketorolac Tromethamine (Toradol) 15 mg IVPUSH Q6H [facility] Stop: 01/04/19 11:31 Last Admin: 01/03/19 20:11 Dose: Not Given Ketorolac Tromethamine (Toradol) 15 mg IVPUSH Q6H [facility] Stop: 01/04/19 13:31 Last Admin: 01/04/19 06:36 Dose: 15 mg Lidocaine (Xylocaine-Mpf 2%) Confirm Administered Dose 5 ml .ROUTE .STK-MED ONE Stop: 01/03/19 14:38 Midazolam HCl (Versed 1 Mg/Ml) Confirm Administered Dose 2 mg .ROUTE .STK-MED ONE Stop: 01/03/19 14:37 Naloxone HCl (Narcan) 0.1 mg IVPUSH ASDIRECTED PRN PRN Reason: Respiratory Depression Neostigmine Methylsulfate (Neostigmine) Confirm Administered Dose 5 mg .ROUTE .STK-MED ONE Stop: 01/03/19 14:38 Ondansetron HCl (Zofran) Confirm Administered Dose 4 mg .ROUTE .STK-MED ONE Stop: 01/03/19 14:38 Phenylephrine HCl (Phenylephrine In Ns 100 Mcg/Ml) Confirm Administered Dose 1 mg .ROUTE .STK-MED ONE Stop: 01/03/19 15:13 Propofol (Diprivan 20 Ml) Confirm Administered Dose 200 mg .ROUTE .STK-MED ONE Stop: 01/03/19 14:36 Rocuronium [place] (Zemuron) Confirm Administered Dose 100 mg .ROUTE .STK-MED ONE Stop: 01/03/19 14:38 - Exam Wound/Incisions: Healing Well, Dressing Dry and Intact, Other (Drain has serous output ) General: Alert, Oriented, Cooperative Lungs: Normal Respiratory Effort Cardiovascular: Regular Rate GI/Abdominal Exam: Soft, Non-Tender, No Distention, No Mass Skin: Warm, Dry, Intact - Problem List & Annotations (1) Appendicitis SNOMED Code(s): 89063981 Code(s): K37 - UNSPECIFIED APPENDICITIS Status: Acute Current Visit: Yes Qualifiers: Appendicitis type: acute appendicitis Acute appendicitis type: with generalized peritonitis Appendicitis gangrene presence: with gangrene Appendicitis perforation presence: with perforation Appendicitis abscess presence: with abscess Qualified Code(s): K35.21 - Acute appendicitis with generalized peritonitis, with abscess; K35.891 - Other acute appendicitis without perforation, with gangrene - Problem List Review Problem List Initiated/Reviewed/Updated: Yes - My Orders Last 24 Hours: Active Orders 24 hr Category Date Time Status Regular Diet [DIET] Diet 01/05/19 Lunch Active BASIC METABOLIC PANEL,BMP [CHEM] AM Lab 01/06/19 05:11 Ordered BASIC METABOLIC PANEL,BMP [CHEM] AM Lab 01/07/19 05:11 Ordered BASIC METABOLIC PANEL,BMP [CHEM] AM Lab 01/08/19 05:11 Ordered CBC WITH AUTO DIFF [HEME] AM Lab 01/06/19 05:11 Ordered CBC WITH AUTO DIFF [HEME] AM Lab 01/07/19 05:11 Ordered CBC WITH AUTO DIFF [HEME] AM Lab 01/08/19 05:11 Ordered Bisacodyl [Dulcolax] Med 01/04/19 12:43 Active 5 mg PO DAILY PRN Ciprofloxacin [Ciprofloxacin HCl] Med 01/05/19 12:00 Active 500 mg PO BID Omeprazole Med 01/05/19 07:30 Active 20 mg PO ACBREAKFAST metroNIDAZOLE Med 01/05/19 12:00 Active 250 mg PO Q6H Medication Orders Hydrocodone Bitart/Acetaminophen (Cornelius 325-5 Mg) 2 tab PO Q4H PRN PRN Reason: Pain Last Admin: 01/05/19 10:48 Dose: 2 tab Admin: 01/05/19 06:42 Dose: 2 tab Admin: 01/05/19 02:20 Dose: 2 tab Admin: 01/04/19 21:20 Dose: 2 tab Admin: 01/04/19 16:01 Dose: 2 tab Admin: 01/04/19 12:19 Dose: 2 tab Admin: 01/04/19 08:19 Dose: 2 tab Bisacodyl (Dulcolax) 5 mg PO DAILY PRN PRN Reason: Constipation Last Admin: 01/05/19 11:01 Dose: 5 mg Ciprofloxacin (Ciprofloxacin Hcl) 500 mg PO BID [facility] Last Admin: 01/05/19 11:56 Dose: 500 mg Enoxaparin Sodium (Lovenox) 40 mg SUBCUT Q24H [facility] Last Admin: 01/05/19 09:36 Dose: 40 mg Admin: 01/04/19 10:08 Dose: 40 mg Ketorolac Tromethamine (Toradol) 15 mg IVPUSH Q6H [facility] Stop: 01/09/19 08:05 Last Admin: 01/05/19 07:44 Dose: 15 mg Admin: 01/05/19 02:20 Dose: 15 mg Admin: 01/04/19 20:15 Dose: 15 mg Admin: 01/04/19 14:27 Dose: 15 mg Admin: 01/04/19 09:40 Dose: Not Given Metronidazole (Metronidazole) 250 mg PO Q6H [facility] Last Admin: 01/05/19 11:56 Dose: 250 mg Morphine Sulfate (Morphine) 3 mg IVPUSH Q1H PRN PRN Reason: Pain (severe 7-10) Last Admin: 01/04/19 23:22 Dose: 3 mg Admin: 01/04/19 18:20 Dose: 3 mg Admin: 01/04/19 13:05 Dose: 3 mg Admin: 01/04/19 10:22 Dose: 3 mg Admin: 01/04/19 05:20 Dose: 3 mg Admin: 01/04/19 03:20 Dose: 3 mg Admin: 01/04/19 01:58 Dose: 3 mg Admin: 01/03/19 23:57 Dose: 3 mg Admin: 01/03/19 21:34 Dose: 3 mg Omeprazole (Omeprazole) 20 mg PO ACBREAKFAST [facility] Last Admin: 01/05/19 06:42 Dose: 20 mg Ondansetron HCl (Zofran) 4 mg IVPUSH Q6H PRN PRN Reason: Nausea/Vomiting Promethazine HCl (Phenergan) 25 mg IM Q6H PRN PRN Reason: Nausea Sodium Chloride (Saline Flush) 10 ml FLUSH ASDIRECTED PRN PRN Reason: Keep Vein Open Sodium Chloride (Saline Flush) 2.5 ml FLUSH ASDIRECTED PRN PRN Reason: Keep Vein Open Sodium Chloride (Normal Saline) 10 ml IV ASDIRECTED PRN PRN Reason: IV Use - Plan Plan (Free Text/Narrative):: Patient is 28 year old male who is doing well after perforated necrotic appendicitis with abscess and generalized peritonitis. He is starting to pass gas. His vitals are stable and his WBC is WNL albeit he still has a slight left shift. Will start regular diet today and d/c IVF. Will d/c zosyn and switch to cipro and flagyl. Will remove dressings and pull drain later today. Ok to shower after that. If tolerating regular diet, home in am.
[2019-01-05] MEDS: Ondansetron 4 MG/2 ML SDV IVPUSH PRN (12:18)
[2019-01-05] MEDS: Acetaminophen/oxyCODONE 325-5 MG Tab PO PRN ×2 (17:32→22:31)
[2019-01-06] MEDS: Ketorolac 15 MG/ML SDV IVPUSH SCH ×4 (01:22→19:48)
[2019-01-06] MEDS: Acetaminophen/oxyCODONE 325-5 MG Tab PO PRN ×3 (03:49→23:42)
[2019-01-06] MEDS: metroNIDAZOLE 250 MG Tab PO SCH ×4 (06:36→23:35)
[2019-01-06] MEDS: Omeprazole 20 MG Cap.CR PO SCH (06:36)
[2019-01-06 06:39] LABS: CHLORIDE,CL 100 mmol/L (98-107); SODIUM,NA 138 mmol/L (136-148)
[2019-01-06] MEDS ORDERED: Magnesium Citrate Solution 296 ML Bottle PO ONE (07:57)
--- NOTE | 2019-01-06 08:18 | PCM.DCSUM1 ---
Discharge Summary - Hospital Course Free Text/Narrative:: Patient is 28-year-old male who presented with 2 days of abdominal pain. Workup at an outside hospital showed a white count of 19,[address] scan showed a thickened and inflamed appendix consistent with acute appendicitis. He underwent a laparoscopic converted to open appendectomy. Intraoperatively the patient was found to have a necrotic retrocecal appendix encased in an abscess cavity with purulent material extending up the right paracolic gutter and down into the pelvis. His appendix was removed without difficulty and the abdomen was washed out. A drain was placed. He tolerated the procedure well, but was admitted overnight in the ICU for close monitoring. His urine output was good and his energy had minimal output. The next morning the Bland and NG were removed. He was transferred to the [facility] floor. His WBC decreased to 10k on postop day 1. His drain output was serous and minimal. His WBC remained within normal limits. At the end of postop day one the patient was passing flatus and his diet was advanced to clears. He tolerated this well. On postop day 2 his abdomen is flat soft and nontender. He was switched from Zosyn to ciprofloxacin and flagyl. Dressings were removed as well as the drain. His diet was advanced to regular. He had a little nausea associated with Unity pain medication and was switched instead to Percocet. Vitals remained stable and he was afebrile. This morning he is a little more bloated after starting his regular diet. His white count is slightly elevated at 13,000 but he is vitally stable. Gave patient a bottle of magnesium citrate to stimulate BM. He is otherwise doing well, ambulating without difficulty, pain is well controlled and he is tolerating a diet. Will be discharged to home with his . - Discharge Data Discharge Date: 01/06/19 Discharge Disposition: Home, Self-Care 01 Condition: Good - Discharge Diagnosis/Problem(s) (1) Appendicitis SNOMED Code(s): 38094234 ICD Code: K37 - UNSPECIFIED APPENDICITIS Status: Acute Current Visit: Yes Qualifiers: Appendicitis type: acute appendicitis Acute appendicitis type: with generalized peritonitis Appendicitis gangrene presence: with gangrene Appendicitis perforation presence: with perforation Appendicitis abscess presence: with abscess Qualified Code(s): K35.21 - Acute appendicitis with generalized peritonitis, with abscess; K35.891 - Other acute appendicitis without perforation, with gangrene - Patient Summary/Data Operative Procedure(s) Performed: Open appendectomy - Patient Instructions Diet: Regular Diet as Tolerated Activity: Rest and Relax Today Driving: Do Not Drive (for one week ) Showering/Bathing: May Shower, No Tub Bathing/Swimming (for 2 weeks ) Wound/Incision Care: Keep Operative Site/Wound Site Clean and Dry Notify Provider of: Fever, Increased Pain, Swelling and Redness, Drainage, Nausea and/or Vomiting Other/Special Instructions: Go to hospital if having increased abdominal pain or fevers. - Discharge Plan *PRESCRIPTION DRUG MONITORING PROGRAM REVIEWED*: Yes *COPY OF PRESCRIPTION DRUG MONITORING REPORT IN PATIENT KYMBERLY: Yes Prescriptions/Med Rec: Bisacodyl [Dulcolax] 5 mg PO DAILY PRN #14 tablet PRN Reason: Constipation Ciprofloxacin [Ciprofloxacin HCl] 500 mg PO BID #6 tablet metroNIDAZOLE 250 mg PO Q6H #14 tablet Home Medications: Home Meds Dextroamphetamine/Amphetamine [Adderall 20 mg Tablet] 20 mg PO TID 01/03/19 [ History] Bisacodyl [Dulcolax] 5 mg PO DAILY PRN #14 tablet 01/05/19 [Rx] Ciprofloxacin [Ciprofloxacin HCl] 500 mg PO BID #6 tablet 01/05/19 [Rx] metroNIDAZOLE 250 mg PO Q6H #14 tablet 01/05/19 [Rx] Patient Handouts: Bisacodyl tablets and capsules, Open Appendectomy, Care After , Ciprofloxacin tablets, Metronidazole tablets or capsules Referrals: Shana Manzano MD [Physician] - 01/18/19 11:00 am - Discharge Summary/Plan Comment DC Time >30 min.: No - General Info Date of Service: 01/06/19 Functional Status: Reports: Pain Controlled, Tolerating Diet, Ambulating, Urinating - Review of Systems General: Reports: No Symptoms HEENT: Reports: No Symptoms Pulmonary: Reports: No Symptoms Cardiovascular: Reports: No Symptoms Gastrointestinal: Reports: Flatus, Other (bloated). Denies: Abdominal Pain, Nausea, Vomiting Genitourinary: Reports: No Symptoms Musculoskeletal: Reports: No Symptoms Skin: Reports: No Symptoms - Patient Data Vitals - Most Recent: Last Vital Signs Temp 36.6 C 01/06/19 07:51 Pulse 82 01/06/19 07:51 Resp 16 01/06/19 07:51 BP 118/65 01/06/19 07:51 Pulse Ox 93 L 01/06/19 07:51 Weight - Most Recent: 68.039 kg I&O - Last 24 hours: Intake & Output 01/05/19 01/06/19 01/06/19 22:59 06:59 14:59 Intake Total 800 710 Output Total 430 Balance 370 710 Lab Results - Last 24 hrs: Laboratory Results - last 24 hr 01/06/19 01/06/19 Range/Units 05:56 05:56 WBC 13.15 H (4.0-11.0) K/uL RBC 4.31 L (4.50-5.90) M/uL Hgb 13.0 (13.0-17.0) g/dL Hct 38.9 (38.0-50.0) % MCV 90.3 (80.0-98.0) fL MCH 30.2 (27.0-32.0) pg MCHC 33.4 (31.0-37.0) g/dL RDW Std Deviation 43.8 (28.0-62.0) fl RDW Coeff of Laura 13 (11.0-15.0) % Plt Count 282 (150-400) K/uL MPV 10.30 (7.40-12.00) fL Add Manual Diff YES Neutrophils % (Manual) 54 (48.0-80.0) % Band Neutrophils % 18 % Lymphocytes % (Manual) 12 L (16.0-40.0) % Monocytes % (Manual) 11 (0.0-15.0) % Eosinophils % (Manual) 5 (0.0-7.0) % Nucleated RBC % 0.0 /100WBC Absolute Seg Neuts 7.1 H (1.4-5.7) Band Neutrophils # 2.4 Lymphocytes # (Manual) 1.6 (0.6-2.4) Monocytes # (Manual) 1.4 H (0.0-0.8) Eosinophils # (Manual) 0.7 (0.0-0.7) Nucleated RBCs # 0 K/uL Sodium 138 (136-148) mmol/L Potassium 3.8 (3.5-5.1) mmol/L Chloride 100 (98-107) mmol/L Carbon Dioxide 32.0 (21.0-32.0) mmol/L BUN 7 (7.0-18.0) mg/dL Creatinine 0.9 (0.8-1.3) mg/dL Est Cr Clr Drug Dosing 106.30 mL/min Estimated GFR (MDRD) > 60.0 ml/min Glucose 93 (74-106) mg/dL Calcium 8.8 (8.5-10.1) mg/dL Med Orders - Current: Current Medications Bisacodyl (Dulcolax) 5 mg PO DAILY PRN PRN Reason: Constipation Last Admin: 01/05/19 11:01 Dose: 5 mg Ciprofloxacin (Ciprofloxacin Hcl) 500 mg PO BID [facility] Last Admin: 01/05/19 20:22 Dose: 500 mg Enoxaparin Sodium (Lovenox) 40 mg SUBCUT Q24H [facility] Last Admin: 01/05/19 09:36 Dose: 40 mg Ketorolac Tromethamine (Toradol) 15 mg IVPUSH Q6H [facility] Stop: 01/09/19 08:05 Last Admin: 01/06/19 01:22 Dose: 15 mg Metronidazole (Metronidazole) 250 mg PO Q6H [facility] Last Admin: 01/06/19 06:36 Dose: 250 mg Morphine Sulfate (Morphine) 3 mg IVPUSH Q1H PRN PRN Reason: Pain (severe 7-10) Last Admin: 01/04/19 23:22 Dose: 3 mg Omeprazole (Omeprazole) 20 mg PO ACBREAKFAST [facility] Last Admin: 01/06/19 06:36 Dose: 20 mg Ondansetron HCl (Zofran) 4 mg IVPUSH Q6H PRN PRN Reason: Nausea/Vomiting Last Admin: 01/05/19 12:18 Dose: 4 mg Oxycodone/Acetaminophen (Percocet 325-5 Mg) 2 tab PO Q4H PRN PRN Reason: Pain Last Admin: 01/06/19 03:49 Dose: 2 tab Promethazine HCl (Phenergan) 25 mg IM Q6H PRN PRN Reason: Nausea Sodium Chloride (Saline Flush) 10 ml FLUSH ASDIRECTED PRN PRN Reason: Keep Vein Open Sodium Chloride (Saline Flush) 2.5 ml FLUSH ASDIRECTED PRN PRN Reason: Keep Vein Open Sodium Chloride (Normal Saline) 10 ml IV ASDIRECTED PRN PRN Reason: IV Use Discontinued Medications Hydrocodone Bitart/Acetaminophen (Unity 325-5 Mg) 2 tab PO Q4H PRN PRN Reason: Pain Last Admin: 01/05/19 10:48 Dose: 2 tab Albuterol (Proventil Neb Soln) 2.5 mg NEB ONETIME PRN PRN Reason: Wheezing Atropine Sulfate (Atropine 0.1 Mg/Ml) 0.5 mg IVPUSH ASDIRECTED PRN PRN Reason: Hypo-perfusion Atropine Sulfate (Atropine 0.1 Mg/Ml) 1 mg IVPUSH ASDIRECTED PRN PRN Reason: Hypo-Perfusion Bupivacaine HCl (Marcaine 0.5%) Confirm Administered Dose 30 ml .ROUTE .STK-MED ONE Stop: 01/03/19 15:09 Cefazolin Sodium (Ancef) Confirm Administered Dose 1 gm .ROUTE .STK-MED ONE Stop: 01/03/19 15:47 Cefazolin Sodium (Ancef) Confirm Administered Dose 1 gm .ROUTE .STK-MED ONE Stop: 01/03/19 16:10 Dextrose/Water (Dextrose 50% In Water) 50 ml IVPUSH ASDIRECTED PRN PRN Reason: Hypoglycemia Epinephrine HCl (Epinephrine 1:10,000) 1 mg IVPUSH ASDIRECTED PRN PRN Reason: ACLS Guidelines Esmolol HCl (Esmolol) Confirm Administered Dose 100 mg .ROUTE .STK-MED ONE Stop: 01/03/19 15:12 Fentanyl (Sublimaze) 50 mcg IVPUSH Q5M PRN PRN Reason: Pain Last Admin: 01/03/19 14:35 Dose: 50 mcg Fentanyl (Sublimaze) Confirm Administered Dose 250 mcg .ROUTE .STK-MED ONE Stop: 01/03/19 14:37 Fentanyl (Sublimaze) 50 mcg IVPUSH Q5M PRN PRN Reason: Pain Glycopyrrolate (Robinul) Confirm Administered Dose 0.8 mg .ROUTE .STK-MED ONE Stop: 01/03/19 14:38 Hydromorphone HCl (Dilaudid) 0.5 mg IVPUSH Q1H PRN PRN Reason: Pain Hydromorphone HCl (Dilaudid) Confirm Administered Dose 2 mg .ROUTE .STK-MED ONE Stop: 01/03/19 13:41 Last Admin: 01/03/19 19:09 Dose: Not Given Hydromorphone HCl (Dilaudid) 0.5 mg IVPUSH Q1H PRN PRN Reason: Pain Last Admin: 01/03/19 18:50 Dose: 0.5 mg Lactated Ringer's (Ringers, Lactated) 1,000 mls @ 150 mls/hr IV ASDIRECTED [facility] Last Admin: 01/05/19 03:00 Dose: 125 mls/hr Piperacillin Sod/Tazobactam (Sod 3.375 gm/ Sodium Chloride) 50 mls @ 100 mls/ hr IV ONETIME ONE Stop: 01/03/19 13:53 Last Admin: 01/03/19 13:50 Dose: 100 mls/hr Acetaminophen (Ofirmev) Confirm Administered Dose 100 mls @ as directed IV .STK- MED ONE Stop: 01/03/19 17:15 Pantoprazole Sodium 40 mg/ (Sodium Chloride) 10 mls @ 300 mls/hr IV DAILY [facility] Last Admin: 01/04/19 08:18 Dose: 300 mls/hr Piperacillin Sod/Tazobactam (Sod 3.375 gm/ Sodium Chloride) 50 mls @ 100 mls/ hr IV Q6H [facility] Last Admin: 01/05/19 07:43 Dose: 100 mls/hr Ketorolac Tromethamine (Toradol) Confirm Administered Dose 30 mg .ROUTE .STK- MED ONE Stop: 01/03/19 14:38 Ketorolac Tromethamine (Toradol) 15 mg IVPUSH Q6H [facility] Stop: 01/04/19 11:31 Last Admin: 01/03/19 20:11 Dose: Not Given Ketorolac Tromethamine (Toradol) 15 mg IVPUSH Q6H [facility] Stop: 01/04/19 13:31 Last Admin: 01/04/19 06:36 Dose: 15 mg Lidocaine (Xylocaine-Mpf 2%) Confirm Administered Dose 5 ml .ROUTE .STK-MED ONE Stop: 01/03/19 14:38 Magnesium Citrate (Citrate Of Magnesia) 296 ml PO ONETIME ONE Stop: 01/06/19 07:58 Midazolam HCl (Versed 1 Mg/Ml) Confirm Administered Dose 2 mg .ROUTE .STK-MED ONE Stop: 01/03/19 14:37 Naloxone HCl (Narcan) 0.1 mg IVPUSH ASDIRECTED PRN PRN Reason: Respiratory Depression Neostigmine Methylsulfate (Neostigmine) Confirm Administered Dose 5 mg .ROUTE .STK-MED ONE Stop: 01/03/19 14:38 Ondansetron HCl (Zofran) Confirm Administered Dose 4 mg .ROUTE .STK-MED ONE Stop: 01/03/19 14:38 Phenylephrine HCl (Phenylephrine In Ns 100 Mcg/Ml) Confirm Administered Dose 1 mg .ROUTE .STK-MED ONE Stop: 01/03/19 15:13 Propofol (Diprivan 20 Ml) Confirm Administered Dose 200 mg .ROUTE .STK-MED ONE Stop: 01/03/19 14:36 Rocuronium [place] (Zemuron) Confirm Administered Dose 100 mg .ROUTE .STK-MED ONE Stop: 01/03/19 14:38 - Exam General: Reports: Alert, Oriented, Cooperative, No Acute Distress Lungs: Reports: Normal Respiratory Effort Cardiovascular: Reports: Regular Rate GI/Abdominal Exam: Soft, Non-Tender, No Distention, No Mass, Distended (mildly ) Extremities: Normal Inspection
[2019-01-06] MEDS: Ciprofloxacin 500 MG Tab PO SCH ×2 (08:38→20:04)
[2019-01-06] MEDS: Enoxaparin 40 MG/0.4 ML Syringe SUBCUT SCH (08:41)
[2019-01-06] MEDS: Ondansetron 4 MG/2 ML SDV IVPUSH PRN ×2 (10:39→17:06)
[2019-01-06] MEDS ORDERED: Bisacodyl 10 MG Supp RECTAL ONE (11:39)
--- NOTE | 2019-01-06 15:31 | PCM.SN ---
- Free Text/Narrative Note: Patient drank magnesium citrate and became diaphoretic afterwards. He requested a suppository. He had a small BM after that and a mucous filled one after that. Shortly after he vomited. It was bilious appearing. His D/C was cancelled. I evaluated him at bedside. He was more comfortable but his abdomen was distended. He was switched back to clears with IVF LR @ 100ml/hr. Will have nausea medications available and will re-evaluate in the am. Likely has slow bowel function due to his surgery and the combination of bowel meds and a regular diet caused him to vomit. Still passing flatus and did have 2 BMs. Hopefully with some bowel rest tonight he will feel better in the AM. Continue current meds for infection for now.
[2019-01-06] MEDS: Lactated Ringers 1,000 ML IV SCH (15:40)
[2019-01-07] MEDS: Lactated Ringers 1,000 ML IV SCH (02:32)
[2019-01-07] MEDS: Ketorolac 15 MG/ML SDV IVPUSH SCH ×2 (02:34→08:23)
[2019-01-07] MEDS: Omeprazole 20 MG Cap.CR PO SCH (06:35)
[2019-01-07] MEDS: metroNIDAZOLE 250 MG Tab PO SCH (06:35)
[2019-01-07 06:48] LABS: CHLORIDE,CL 100 mmol/L (98-107); SODIUM,NA 139 mmol/L (136-148)
[2019-01-07] MEDS: Ciprofloxacin 500 MG Tab PO SCH (08:24)
[2019-01-07] MEDS: Enoxaparin 40 MG/0.4 ML Syringe SUBCUT SCH ×2 (08:25→08:33)
[2019-01-07 08:28] VITALS: BP 134/76
[2019-01-07] MEDS: Ondansetron 4 MG/2 ML SDV IVPUSH PRN (09:25)
--- NOTE | 2019-01-07 09:41 | PCM.DCSUM1 ---
Discharge Summary - Hospital Course Free Text/Narrative:: Patient is 28-year-old male who presented with 2 days of abdominal pain. Workup at an outside hospital showed a white count of 19,[address] scan showed a thickened and inflamed appendix consistent with acute appendicitis. He underwent a laparoscopic converted to open appendectomy. Intraoperatively the patient was found to have a necrotic retrocecal appendix encased in an abscess cavity with purulent material extending up the right paracolic gutter and down into the pelvis. His appendix was removed without difficulty and the abdomen was washed out. A drain was placed. He tolerated the procedure well, but was admitted overnight in the ICU for close monitoring. His urine output was good and his energy had minimal output. The next morning the Bland and NG were removed. He was transferred to the [facility] floor. His WBC decreased to 10k on postop day 1. His drain output was serous and minimal. His WBC remained within normal limits. At the end of postop day one the patient was passing flatus and his diet was advanced to clears. He tolerated this well. On postop day 2 his abdomen is flat soft and nontender. He was switched from Zosyn to ciprofloxacin and flagyl. Dressings were removed as well as the drain. His diet was advanced to regular. He had a little nausea associated with [place] pain medication and was switched instead to Percocet. Vitals remained stable and he was afebrile. This morning he is a little more bloated after starting his regular diet. His white count is slightly elevated at 13,000 but he is vitally stable. Gave patient a bottle of magnesium citrate to stimulate BM. With this he became nauseated and diaphoretic. He asked for a suppository. This stimulated a BM, however he then vomited. I came to reassess the patient. His abdomen was more distended and he was very nauseated. He was given IVF and nausea meds. His diet was switched to clears. He went on to have 2 more BMs afterwards. His vitals were stable overnight and he did not vomit again. This morning his abdomen is much less distended and he feels better. His WBC is down to 12. His incisions appear to be healing well with no signs of breakdown or infection. He was given a regular diet which he tolerated. He does complain of anxiety and stress due to this hospitalization. He was given 0.5 mg of Ativan for anxiety and sleep. His pain is well controlled and he appears better today. Will discharge home. - Discharge Data Discharge Date: 01/07/19 Discharge Disposition: Home, Self-Care 01 Condition: Good - Discharge Diagnosis/Problem(s) (1) Appendicitis SNOMED Code(s): 83630276 ICD Code: K37 - UNSPECIFIED APPENDICITIS Status: Acute Current Visit: Yes Qualifiers: Appendicitis type: acute appendicitis Acute appendicitis type: with generalized peritonitis Appendicitis gangrene presence: with gangrene Appendicitis perforation presence: with perforation Appendicitis abscess presence: with abscess Qualified Code(s): K35.21 - Acute appendicitis with generalized peritonitis, with abscess; K35.891 - Other acute appendicitis without perforation, with gangrene - Patient Summary/Data Operative Procedure(s) Performed: Open appendectomy - Patient Instructions Diet: Regular Diet as Tolerated, Drink 8-10+ Glasses/Day Diet, Other: small frequent meals, Activity: Rest and Relax Today Driving: Do Not Drive (for one week ) Showering/Bathing: May Shower, No Tub Bathing/Swimming (for 2 weeks ) Wound/Incision Care: Keep Operative Site/Wound Site Clean and Dry Notify Provider of: Fever, Increased Pain, Swelling and Redness, Drainage, Nausea and/or Vomiting Other/Special Instructions: Go to hospital if having increased abdominal pain or fevers. - Discharge Plan *PRESCRIPTION DRUG MONITORING PROGRAM REVIEWED*: Yes *COPY OF PRESCRIPTION DRUG MONITORING REPORT IN PATIENT KYMBERLY: Yes Prescriptions/Med Rec: Bisacodyl [Dulcolax] 5 mg PO DAILY PRN #14 tablet PRN Reason: Constipation Ciprofloxacin [Ciprofloxacin HCl] 500 mg PO BID #6 tablet metroNIDAZOLE 250 mg PO Q6H #14 tablet Ondansetron [Zofran ODT] 4 mg PO Q6H PRN #30 tab.dis PRN Reason: Nausea/Vomiting Home Medications: Home Meds Dextroamphetamine/Amphetamine [Adderall 20 mg Tablet] 20 mg PO TID 01/03/19 [ History] Bisacodyl [Dulcolax] 5 mg PO DAILY PRN #14 tablet 01/05/19 [Rx] Ciprofloxacin [Ciprofloxacin HCl] 500 mg PO BID #6 tablet 01/05/19 [Rx] metroNIDAZOLE 250 mg PO Q6H #14 tablet 01/05/19 [Rx] Ondansetron [Zofran ODT] 4 mg PO Q6H PRN #30 tab.dis 01/07/19 [Rx] Patient Handouts: Bisacodyl tablets and capsules, Acetaminophen; Oxycodone tablets, Open Appendectomy, Care After, Lorazepam tablets, Ciprofloxacin tablets , Metronidazole tablets or capsules Referrals: Shana Manzano MD [Physician] - 01/18/19 11:00 am - Discharge Summary/Plan Comment DC Time >30 min.: No - General Info Date of Service: 01/07/19 Subjective Update: Abdomen feels better. Able to take full breaths and feels less distended. Stressed due to hospitalization and travel concerns. Asking for meds for anxiety. Functional Status: Reports: Pain Controlled, Tolerating Diet - Review of Systems General: Reports: No Symptoms HEENT: Reports: No Symptoms Pulmonary: Reports: No Symptoms Cardiovascular: Reports: No Symptoms Gastrointestinal: Reports: No Symptoms Genitourinary: Reports: No Symptoms Musculoskeletal: Reports: No Symptoms Skin: Reports: No Symptoms - Patient Data Vitals - Most Recent: Last Vital Signs Temp 36.6 C 01/07/19 08:00 Pulse 78 01/07/19 08:00 Resp 16 01/07/19 08:00 BP 134/76 01/07/19 08:00 Pulse Ox 93 L 01/07/19 08:00 Weight - Most Recent: 67.767 kg I&O - Last 24 hours: Intake & Output 01/06/19 01/07/19 01/07/19 22:59 06:59 14:59 Intake Total 540 1695 Output Total 0 0 Balance 540 1695 Lab Results - Last 24 hrs: Laboratory Results - last 24 hr 01/07/19 01/07/19 Range/Units 05:50 05:50 WBC 12.04 H (4.0-11.0) K/uL RBC 4.23 L (4.50-5.90) M/uL Hgb 12.6 L (13.0-17.0) g/dL Hct 37.7 L (38.0-50.0) % MCV 89.1 (80.0-98.0) fL MCH 29.8 (27.0-32.0) pg MCHC 33.4 (31.0-37.0) g/dL RDW Std Deviation 43.7 (28.0-62.0) fl RDW Coeff of Laura 13 (11.0-15.0) % Plt Count 316 (150-400) K/uL MPV 9.90 (7.40-12.00) fL Add Manual Diff YES Neutrophils % (Manual) 61 (48.0-80.0) % Band Neutrophils % 12 % Lymphocytes % (Manual) 17 (16.0-40.0) % Monocytes % (Manual) 7 (0.0-15.0) % Eosinophils % (Manual) 2 (0.0-7.0) % Metamyelocytes % 1 % Nucleated RBC % 0.0 /100WBC Absolute Seg Neuts 7.3 H (1.4-5.7) Band Neutrophils # 1.4 Lymphocytes # (Manual) 2.0 (0.6-2.4) Monocytes # (Manual) 0.8 (0.0-0.8) Eosinophils # (Manual) 0.2 (0.0-0.7) Absolute Metamyelocyte 0.1 Nucleated RBCs # 0 K/uL Sodium 139 (136-148) mmol/L Potassium 3.7 (3.5-5.1) mmol/L Chloride 100 (98-107) mmol/L Carbon Dioxide 31.8 (21.0-32.0) mmol/L BUN 10 (7.0-18.0) mg/dL Creatinine 0.8 (0.8-1.3) mg/dL Est Cr Clr Drug Dosing 119.58 mL/min Estimated GFR (MDRD) > 60.0 ml/min Glucose 107 H (74-106) mg/dL Calcium 8.5 (8.5-10.1) mg/dL Med Orders - Current: Current Medications Bisacodyl (Dulcolax) 5 mg PO DAILY PRN PRN Reason: Constipation Last Admin: 01/05/19 11:01 Dose: 5 mg Ciprofloxacin (Ciprofloxacin Hcl) 500 mg PO BID [facility] Last Admin: 01/07/19 08:24 Dose: 500 mg Enoxaparin Sodium (Lovenox) 40 mg SUBCUT Q24H [facility] Last Admin: 01/07/19 08:33 Dose: Not Given Ketorolac Tromethamine (Toradol) 15 mg IVPUSH Q6H [facility] Stop: 01/09/19 08:05 Last Admin: 01/07/19 08:23 Dose: 15 mg Metronidazole (Metronidazole) 250 mg PO Q6H [facility] Last Admin: 01/07/19 06:35 Dose: 250 mg Morphine Sulfate (Morphine) 3 mg IVPUSH Q1H PRN PRN Reason: Pain (severe 7-10) Last Admin: 01/04/19 23:22 Dose: 3 mg Omeprazole (Omeprazole) 20 mg PO ACBREAKFAST [facility] Last Admin: 01/07/19 06:35 Dose: 20 mg Ondansetron HCl (Zofran) 4 mg IVPUSH Q6H PRN PRN Reason: Nausea/Vomiting Last Admin: 01/07/19 09:25 Dose: 4 mg Oxycodone/Acetaminophen (Percocet 325-5 Mg) 2 tab PO Q4H PRN PRN Reason: Pain Last Admin: 01/06/19 23:42 Dose: 2 tab Promethazine HCl (Phenergan) 25 mg IM Q6H PRN PRN Reason: Nausea Sodium Chloride (Saline Flush) 10 ml FLUSH ASDIRECTED PRN PRN Reason: Keep Vein Open Sodium Chloride (Saline Flush) 2.5 ml FLUSH ASDIRECTED PRN PRN Reason: Keep Vein Open Sodium Chloride (Normal Saline) 10 ml IV ASDIRECTED PRN PRN Reason: IV Use Discontinued Medications Hydrocodone Bitart/Acetaminophen ([place] 325-5 Mg) 2 tab PO Q4H PRN PRN Reason: Pain Last Admin: 01/05/19 10:48 Dose: 2 tab Albuterol (Proventil Neb Soln) 2.5 mg NEB ONETIME PRN PRN Reason: Wheezing Atropine Sulfate (Atropine 0.1 Mg/Ml) 0.5 mg IVPUSH ASDIRECTED PRN PRN Reason: Hypo-perfusion Atropine Sulfate (Atropine 0.1 Mg/Ml) 1 mg IVPUSH ASDIRECTED PRN PRN Reason: Hypo-Perfusion Bisacodyl (Dulcolax) 10 mg RECTAL ONETIME ONE Stop: 01/06/19 11:40 Last Admin: 01/06/19 11:56 Dose: 10 mg Bupivacaine HCl (Marcaine 0.5%) Confirm Administered Dose 30 ml .ROUTE .STK-MED ONE Stop: 01/03/19 15:09 Cefazolin Sodium (Ancef) Confirm Administered Dose 1 gm .ROUTE .STK-MED ONE Stop: 01/03/19 15:47 Cefazolin Sodium (Ancef) Confirm Administered Dose 1 gm .ROUTE .STK-MED ONE Stop: 01/03/19 16:10 Dextrose/Water (Dextrose 50% In Water) 50 ml IVPUSH ASDIRECTED PRN PRN Reason: Hypoglycemia Epinephrine HCl (Epinephrine 1:10,000) 1 mg IVPUSH ASDIRECTED PRN PRN Reason: ACLS Guidelines Esmolol HCl (Esmolol) Confirm Administered Dose 100 mg .ROUTE .STK-MED ONE Stop: 01/03/19 15:12 Fentanyl (Sublimaze) 50 mcg IVPUSH Q5M PRN PRN Reason: Pain Last Admin: 01/03/19 14:35 Dose: 50 mcg Fentanyl (Sublimaze) Confirm Administered Dose 250 mcg .ROUTE .STK-MED ONE Stop: 01/03/19 14:37 Fentanyl (Sublimaze) 50 mcg IVPUSH Q5M PRN PRN Reason: Pain Glycopyrrolate (Robinul) Confirm Administered Dose 0.8 mg .ROUTE .STK-MED ONE Stop: 01/03/19 14:38 Hydromorphone HCl (Dilaudid) 0.5 mg IVPUSH Q1H PRN PRN Reason: Pain Hydromorphone HCl (Dilaudid) Confirm Administered Dose 2 mg .ROUTE .STK-MED ONE Stop: 01/03/19 13:41 Last Admin: 01/03/19 19:09 Dose: Not Given Hydromorphone HCl (Dilaudid) 0.5 mg IVPUSH Q1H PRN PRN Reason: Pain Last Admin: 01/03/19 18:50 Dose: 0.5 mg Lactated Ringer's (Ringers, Lactated) 1,000 mls @ 150 mls/hr IV ASDIRECTED [facility] Last Admin: 01/05/19 03:00 Dose: 125 mls/hr Piperacillin Sod/Tazobactam (Sod 3.375 gm/ Sodium Chloride) 50 mls @ 100 mls/ hr IV ONETIME ONE Stop: 01/03/19 13:53 Last Admin: 01/03/19 13:50 Dose: 100 mls/hr Acetaminophen (Ofirmev) Confirm Administered Dose 100 mls @ as directed IV .STK- MED ONE Stop: 01/03/19 17:15 Pantoprazole Sodium 40 mg/ (Sodium Chloride) 10 mls @ 300 mls/hr IV DAILY [facility] Last Admin: 01/04/19 08:18 Dose: 300 mls/hr Piperacillin Sod/Tazobactam (Sod 3.375 gm/ Sodium Chloride) 50 mls @ 100 mls/ hr IV Q6H [facility] Last Admin: 01/05/19 07:43 Dose: 100 mls/hr Lactated Ringer's (Ringers, Lactated) 1,000 mls @ 100 mls/hr IV ASDIRECTED [facility] Last Admin: 01/07/19 02:32 Dose: 100 mls/hr Ketorolac Tromethamine (Toradol) Confirm Administered Dose 30 mg .ROUTE .STK- MED ONE Stop: 01/03/19 14:38 Ketorolac Tromethamine (Toradol) 15 mg IVPUSH Q6H [facility] Stop: 01/04/19 11:31 Last Admin: 01/03/19 20:11 Dose: Not Given Ketorolac Tromethamine (Toradol) 15 mg IVPUSH Q6H [facility] Stop: 01/04/19 13:31 Last Admin: 01/04/19 06:36 Dose: 15 mg Lidocaine (Xylocaine-Mpf 2%) Confirm Administered Dose 5 ml .ROUTE .STK-MED ONE Stop: 01/03/19 14:38 Magnesium Citrate (Citrate Of Magnesia) 296 ml PO ONETIME ONE Stop: 01/06/19 07:58 Last Admin: 01/06/19 08:40 Dose: 296 ml Midazolam HCl (Versed 1 Mg/Ml) Confirm Administered Dose 2 mg .ROUTE .STK-MED ONE Stop: 01/03/19 14:37 Naloxone HCl (Narcan) 0.1 mg IVPUSH ASDIRECTED PRN PRN Reason: Respiratory Depression Neostigmine Methylsulfate (Neostigmine) Confirm Administered Dose 5 mg .ROUTE .STK-MED ONE Stop: 01/03/19 14:38 Ondansetron HCl (Zofran) Confirm Administered Dose 4 mg .ROUTE .STK-MED ONE Stop: 01/03/19 14:38 Phenylephrine HCl (Phenylephrine In Ns 100 Mcg/Ml) Confirm Administered Dose 1 mg .ROUTE .STK-MED ONE Stop: 01/03/19 15:13 Propofol (Diprivan 20 Ml) Confirm Administered Dose 200 mg .ROUTE .STK-MED ONE Stop: 01/03/19 14:36 Rocuronium Eva (Zemuron) Confirm Administered Dose 100 mg .ROUTE .STK-MED ONE Stop: 01/03/19 14:38 - Exam General: Reports: Alert, Oriented HEENT: Reports: Pupils Equal Lungs: Reports: Normal Respiratory Effort Cardiovascular: Reports: Regular Rate GI/Abdominal Exam: Soft, Non-Tender, No Abnormal Bruit, Distended (mild) Extremities: Normal Inspection Skin: Reports: Warm, Dry, Intact Wound/Incisions: Reports: Healing Well Neurological: Reports: No New Focal Deficit Psy/Mental Status: Reports: Alert, Anxious, Depressed
[2019-01-07] MEDS ORDERED: Scopolamine 1.5 MG Transdermal Patch TRDERM PRN (09:46)
== END 2019-01-07 11:30 | disposition home or self-care (01) | DRG 340 ==
LOC: MW.SDS 12:53 → MW.ICU 17:10 → MW.MS 01-04 09:48
PROVIDERS: ADMIT Surgery; ATTEND Surgery
PROC: 0DTJ0ZZ Resection of Appendix, Open Approach (ICD-10-PCS; principal; 2019-01-03)
PROC: 0WJG4ZZ Inspection of Peritoneal Cavity, Percutaneous Endoscopic Approach (ICD-10-PCS; 2019-01-03)
DX: K35.21 Acute appendicitis with generalized peritonitis, with abscess (principal); K21.9 Gastro-esophageal reflux disease without esophagitis; F17.200 Nicotine dependence, unspecified, uncomplicated; F90.9 Attention-deficit hyperactivity disorder, unspecified type; F41.9 Anxiety disorder, unspecified; R11.2 Nausea with vomiting, unspecified; R61 Generalized hyperhidrosis; Z98.890 Other specified postprocedural states; Z79.899 Other long term (current) drug therapy
CPT/HCPCS: 36415; 74018; 74018-26; 80048; 83605; 85025; A9270-GY; C1776; C9113; J0131; J0690; J1170; J1650; J1885; J2001; J2250; J2270; J2370; J2405; J2543; J2704; J3010; J3490; J7050; J7120